=== PATIENT | male | born 1950 | race American Indian/Alaskan Native ===

== ENCOUNTER 2017-11-16 12:53 | Outpatient (CLI) | payer MEDICARE, OTHER ==
--- NOTE | 2017-11-16 22:18 | XRay Report ---
FINAL REPORT PROCEDURE: XR SPINE LUMBOSACRAL 4+V TECHNIQUE: Lumbar spine radiographs, including AP, lateral, oblique, and lumbosacral spot views. HISTORY: Low back pain COMPARISON: No prior studies are available for comparison. FINDINGS: There has been posterior fusion from L4 through S1, with pedicular rods and screws in place. There are multilevel degenerative disc changes, with disc space narrowing and osteophyte formation. The vertebral body heights and alignment are maintained. No scoliosis. 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 IMPRESSION: Postsurgical changes. Multilevel degenerative changes are present
--- NOTE | 2017-11-16 22:25 | XRay Report ---
FINAL REPORT PROCEDURE: XR SHOULDER 2+V LT TECHNIQUE: Left shoulder, three views HISTORY: Pain in left shoulder COMPARISON: No prior studies are available for comparison. FINDINGS: Suture anchor is present in the proximal humerus. There are osteoarthritic changes of the glenohumeral and the acromioclavicular joints. No acute fracture or dislocation is seen. A nodular density overlies the left upper lung, measuring 3 centimeters in diameter IMPRESSION: 3 centimeter nodular density overlies the left upper lung. Recommend further evaluation with CT chest. There are osteoarthritic changes of the glenohumeral and acromioclavicular joint
--- NOTE | 2017-11-16 22:28 | XRay Report ---
FINAL REPORT PROCEDURE: XR CHEST ROUTINE 2V TECHNIQUE: PA and lateral chest radiographs were obtained. CPT 27312 HISTORY: SMOKER,COPD COMPARISON: No prior studies are available for comparison. FINDINGS: Heart: Normal. Mediastinum/Vessels: Normal. Lungs/Pleural space: There is a 3 centimeter rounded density overlying the left upper lobe. No infiltrate, effusion, or pneumothorax is seen Bony thorax: No acute osseous abnormality. Other: Cardiac monitoring device is present. IMPRESSION: 3 centimeter rounded opacity overlies left upper lobe. Findings are suspicious for a pulmonary nodule. Recommend further evaluation with CT chest.
== END 2017-11-16 12:54 | disposition home or self-care (01) ==
LOC: XRAY 12:53
PROVIDERS: ATTEND Urology
DX: M19.012 Primary osteoarthritis, left shoulder (principal); M47.897 Other spondylosis, lumbosacral region; R91.1 Solitary pulmonary nodule; J44.9 Chronic obstructive pulmonary disease, unspecified; F17.210 Nicotine dependence, cigarettes, uncomplicated; M25.78 Osteophyte, vertebrae
CPT/HCPCS: 71046; 72110

== ENCOUNTER → 2018-01-03 | Day surgery (SDC) | payer MEDICARE, OTHER ==
[~2018-01-03] MED LIST: DIPRIVAN 10 MG/ML IV ONE; NACL 0.9% 1000 ML 1,000 ML IV SCH; PROAIR IH ONE; WATER FOR IRRIG STERILE IR ONE; WATER FOR IRRIG STERILE ONE; XYLOCAINE 2% INFILTRATI ONE
[2018-01-03 07:10] VITALS: BP 166/88
== END | disposition home or self-care (01) ==
LOC: GIO 05:55
PROVIDERS: ATTEND Internal Medicine Gastroenterology
DX: Z12.11 Encounter for screening for malignant neoplasm of colon (principal); I25.10 Atherosclerotic heart disease of native coronary artery without angina pectoris; I10 Essential (primary) hypertension; E78.00 Pure hypercholesterolemia, unspecified; F17.210 Nicotine dependence, cigarettes, uncomplicated; Z53.8 Procedure and treatment not carried out for other reasons; Z86.73 Personal history of transient ischemic attack (TIA), and cerebral infarction without residual deficits; Z79.899 Other long term (current) drug therapy; Z95.1 Presence of aortocoronary bypass graft; Z98.890 Other specified postprocedural states
CPT/HCPCS: J2704; J7030

== ENCOUNTER 2018-01-25 06:08 | Day surgery (SDC) | payer OTHER, MEDICARE ==
[2018-01-25] MEDS ORDERED: NACL 0.9% 1000 ML 1,000 ML IV SCH (08:00)
[2018-01-25] MEDS ORDERED: DIPRIVAN 10 MG/ML IV ONE ×3 (08:28→09:13)
[2018-01-25] MEDS ORDERED: PROAIR IH ONE (08:37)
--- NOTE | 2018-01-25 09:36 | Short Stay Summary ---
Short Stay Documentation - Allergies and Medications Current Medications: Allergies No Known Allergies Allergy (Verified 01/03/18 06:56) Home Medications Medication Instructions Recorded Confirmed Last Taken Type AtorvaSTATin 1 tab PO DAILY 01/03/18 01/25/18 01/24/18 History ISOSORBIDE MONOnitrate 1 tab PO DAILY 01/03/18 01/25/18 01/17/18 History Lisinopril 10 mg PO DAILY 01/03/18 01/25/18 01/25/18 History Nitrostat 0.4 mg PO PRN PRN 01/03/18 01/24/18 Unknown History Plavix 75 mg PO DAILY 01/03/18 01/24/18 01/16/18 History Tylenol /Codeine # 3 tab 1 tab PO PRN PRN 01/03/18 01/25/18 01/18/18 History traMADol 1 tab PO DAILY 01/03/18 01/24/18 Unknown History Metoprolol 80 mg PO DAILY 01/25/18 01/25/18 01/25/18 History traMADol 50 mg PO Q3H 01/25/18 01/25/18 01/22/18 History Active Medications Sodium Chloride (Nacl 0.9% 1000 Ml) 1,000 mls @ 50 mls/hr IV DIRECT ALYSHA Last Admin: 01/25/18 07:52 Dose: 50 mls/hr - Brief post op/procedure progress note Date of procedure: 01/25/18 Pre-op diagnosis: Colon cancer screning Post-op diagnosis: same (1. Colon polyps 2. Internal hemorrhoids) Procedure: Colonoscopy with snare polypectomy Anesthesia: MAC Findings: as above Surgeon: NANI PETERS Estimated blood loss: none Pathology: list (Sigmoid polyps) Specimen disposition: to lab Condition: stable - Disposition Condition at discharge: Stable Disposition: [id number] TO HOME OR SELFCARE Short Stay Discharge Plan Follow up with: THANH ANDERSON MD [Primary Care Provider] - 7 Days
[2018-01-25 09:55] VITALS: BP 164/86
== END 2018-01-25 06:09 | disposition home or self-care (01) ==
LOC: GIO 06:08
PROVIDERS: ATTEND Internal Medicine Gastroenterology
DX: Z12.11 Encounter for screening for malignant neoplasm of colon (principal); K63.5 Polyp of colon; K64.8 Other hemorrhoids; I10 Essential (primary) hypertension; I25.10 Atherosclerotic heart disease of native coronary artery without angina pectoris; E78.5 Hyperlipidemia, unspecified; E78.00 Pure hypercholesterolemia, unspecified; I25.2 Old myocardial infarction; J44.9 Chronic obstructive pulmonary disease, unspecified; I73.9 Peripheral vascular disease, unspecified; F17.200 Nicotine dependence, unspecified, uncomplicated; Z79.899 Other long term (current) drug therapy; Z79.01 Long term (current) use of anticoagulants; Z72.89 Other problems related to lifestyle; Z95.5 Presence of coronary angioplasty implant and graft; Z86.73 Personal history of transient ischemic attack (TIA), and cerebral infarction without residual deficits; Z98.890 Other specified postprocedural states
CPT/HCPCS: 45385; 88305; J2704; J7030